=== PATIENT | female | born 1955 | race Caucasian/White ===

== ENCOUNTER → 2023-09-19 11:21 | Outpatient (REF) | payer MEDICARE, OTHER, SELFPAY | LOC: WDC 11:21 | PROVIDERS: ATTENDING PHYSICIAN Internal Medicine Hematology & Oncology; FAMILY PHYSICIAN Physician Assistant Medical | DX: N60.82 Other benign mammary dysplasias of left breast (principal); R92.8 Other abnormal and inconclusive findings on diagnostic imaging of breast; Z13.820 Encounter for screening for osteoporosis; M81.0 Age-related osteoporosis without current pathological fracture; Z12.31 Encounter for screening mammogram for malignant neoplasm of breast | CPT/HCPCS: 77063; 77067; 77080 ==

== ENCOUNTER 2024-03-09 01:20 | Emergency (ER) | payer MEDICARE, OTHER, SELFPAY ==
[2024-03-09 01:22] VITALS: BP 229/106
--- NOTE | 2024-03-09 02:33 | ED.GENMED ---
History of Present Illness
General
Chief Complaint: Back Pain
Time Seen by Provider: 03/09/24 02:32
History of Present Illness
History of Present Illness:
TIME OF INITIAL ENCOUNTER: 2:30 AM
HPI: The patient presents with right-sided low back pain that goes into the right mid thigh. She has had similar symptoms on the left side related to sciatica. She is not sure what she took for this in the past but does not want to take any
narcotic analgesia. She has no weakness in the legs. The pain has been so severe at times that she cannot sleep.
EXAM:
GENERAL: Well appearing but in mild distress
HEENT: Moist oral mucosa
NEUROLOGIC: Excellent strength all extremities, no obvious coordination deficits
PSYCHIATRIC: Appropriate mental status, normal insight and judgement
EXTREMITIES: Nontender, no edema, moves all extremities equally
BACK: There is no midline T or L-spine tenderness, there is some discomfort to palpation in the right SI region, positive straight leg raise on the right
SKIN: No rash, no lesions
NUMBER AND COMPLEXITY OF PROBLEMS ADDRESSED AT THE ENCOUNTER
� Chronic conditions affecting care: Sciatica, high blood pressure, GERD
� Acute Exacerbation and/or Progression of Chronic Illness: This is an acute problem
� Differential Diagnosis includes: Sciatica, degenerative joint disease, degenerative disc disease, spinal stenosis
AMOUNT AND/OR COMPLEXITY OF DATA TO BE REVIEWED AND ANALYZED
� I performed an independent evaluation of and my interpretation is:
EKG:
CT:
X-rays:
Laboratory Studies:
Other:
� Review of other/old records: Osteopenia seen in the femoral neck based on imaging from earlier this year on bone density scan
� Clinical information was obtained by an independent historian: None needed
� Prescriptions/Medications Considered but not given: Considered narcotic analgesia but patient declined
� Further testing considered but not performed: No back pain red flags therefore no imaging obtained
RISK OF COMPLICATIONS AND/OR MORBIDITY OR MORTALITY OF PATIENT MANAGEMENT
� Social determinants of health affecting care: Lives at home
� Discussion with other providers:
� Escalation of care including admission/observation vs risk of discharge considered: Had long discussion with patient regarding her blood pressure and absolute need for follow-up. She has no symptoms that would be related
directly to the blood pressure. Suspect component of blood pressure elevation related to the pain. She will be taking her blood pressure medication later this morning. She takes enalapril. She has normal neurologic examination regarding the
lower extremities. Suspect sciatica and will start steroids and gave a shot of IM Toradol as well.
ANY OTHER UPDATES:
3 AM: BP has improved spontaneously
Past History
Past History
ED Past Medical History: GERD
ED Past Surgical History: Appendectomy and Orthopedic
Social History
Tobacco: Non-smoker
Alcohol: None
Drug: None
Personal:
Living: with family
Employment: Employed
Family History
Family History: Other (Noncontributory)
Phy Exam
Physical Exam
Physical Exam:
See HPI
Course
Orders/Labs/Results
Orders:
Orders
03/09/24 02:39
Ketorolac [Toradol] 30 mg IM NOW STA
Prednisone [Deltasone] 50 mg PO NOW STA
Vital Signs
Initial and Last Documented VS:
Initial Vital Signs
Temp Pulse Resp BP Pulse Ox
98 F 74 26 229/106 98
03/09/24 01:22 03/09/24 01:22 03/09/24 01:22 03/09/24 01:22 03/09/24 01:22
Last Documented Vital Signs
Temp Pulse Resp BP Pulse Ox
98 F 74 26 229/106 98
03/09/24 01:22 03/09/24 01:22 03/09/24 01:22 03/09/24 01:22 03/09/24 01:22
*Critical Care Note
Total Time (30-74mins, 75-104mins- exclusive of procedures): Not Applicable
ED Attending Note
-
Portions of this chart may have been created with voice recognition software.� Occasional wrong word or��sound alike� substitutions may have occurred due to the inherent limitations of voice recognition software.
Discharge Plan
Departure
Patient Disposition: Home (Routine Discharge)
Date of Disposition: 03/09/24
Time of Disposition: 03:16
Patient with high blood pressure during this ER visit?: Yes
Discharge Problem:
Sciatica
Instructions: Sciatica (DC), BLOOD PRESSURE
Prescriptions:
New
prednisone 50 mg tablet
50 mg PO DAILY Qty: 4 0RF
No Action
melatonin 5 MG tablet
10 mg PO HS
Vitamin D3:
2 tab.chew PO DAILY
anastrozole 1 mg Tablet
1 mg PO DAILY
calcium carbonate-vitamin D3 [Calcium 600 + D(3)] 600 mg-10 mcg (400 unit) Tablet
1 tab PO DAILY
biotin
1 tab PO DAILY
calcium carbonate [Tums] 200 mg calcium (500 mg) Tablet,Chewable
200 mg PO DAILY PRN (Reason: gerd)
mupirocin 2 % ointment
1 applic topical BID Qty: 1 0RF
Patient Comments:
pt started 3 days prior to OR day, last performed at 11/29/22 AM of surgery
aspirin 325 mg tablet
325 mg PO DAILY Qty: 1 0RF
Rx Instructions:
Take with food
famotidine 20 mg tablet
20 mg PO HS Qty: 30 0RF
Rx Instructions:
post-op
dexamethasone 4 mg tablet
4 mg PO BID Qty: 6 0RF
Rx Instructions:
take with food
post-op use only
docusate sodium [Colace] 100 mg capsule
100 mg PO BID Qty: 1 0RF
gabapentin 300 mg capsule
300 mg PO TID Qty: 30 0RF
sennosides [Senokot] 8.6 mg tablet
17.2 mg PO BID Qty: 2 0RF
meloxicam 15 mg tablet
15 mg PO DAILY Qty: 14 0RF
Rx Instructions:
take with food
post-op
magnesium hydroxide [Milk of Magnesia] 400 mg/5 mL suspension
30 ml PO HS PRN (Reason: Constipation) Qty: 1 0RF
diazepam [Valium] 2 mg tablet
2 mg PO BID Qty: 10 0RF
oxycodone 5 mg tablet
5 - 10 mg PO Q6HPRN PRN (Reason: 1 tab moderate-2 tabs severe pain) Qty: 30 0RF
Rx Instructions:
Dx surgery
ongoing therapy
Post-op use
acetaminophen [Tylenol Extra Strength] 500 MG tablet
1,000 mg PO QID Qty: 0 0RF
amlodipine 2.5 mg tablet
2.5 mg PO BID Qty: 60 1RF
Rx Instructions:
hold Systolic blood pressure <125
Activity Restrictions/Additional Instructions:
Your blood pressure is markedly elevated. I am sending a prescription for prednisone to your pharmacy. Take the next dose Saturday morning as we are giving your first dose today, Saturday morning. We also gave a one-time dose of Toradol. You must
follow-up with your doctor and/or club steward regarding your very high blood pressure readings as well. Continue your blood pressure medication
Interventions
Interventions:
*Risk Screen - Suicide Last Done: 03/09/24 01:22
*General Assessment Last Done: 03/09/24 02:22
*Neglect/Abuse Screening Last Done: 03/09/24 01:22
*ED COVID-19 Vaccine History Last Done: 03/09/24 02:27
ED-Musculoskeletal Assessment Last Done: 03/09/24 02:22
Discharge Date and Time
Print Language: BRUNEIAN
[2024-03-09] MEDS: TORADOL 30 MG IM (02:48)
[2024-03-09] MEDS: DELTASONE 50 MG PO (02:48)
[2024-03-09 03:13] VITALS: BP 178/66
== END 2024-03-09 03:21 | disposition home or self-care (01) ==
LOC: EMR 01:20
PROVIDERS: EMERGENCY PHYSICIAN Emergency Medicine; FAMILY PHYSICIAN Physician Assistant Medical
DX: M54.40 Lumbago with sciatica, unspecified side (principal); I10 Essential (primary) hypertension; K21.9 Gastro-esophageal reflux disease without esophagitis
CPT/HCPCS: 99284; 96372

== ENCOUNTER → 2024-09-24 13:16 | Outpatient (REF) | payer MEDICARE, OTHER, SELFPAY | LOC: WDC 13:16 | PROVIDERS: ATTENDING PHYSICIAN Internal Medicine Hematology & Oncology; FAMILY PHYSICIAN Physician Assistant Medical | DX: Z12.31 Encounter for screening mammogram for malignant neoplasm of breast (principal) | CPT/HCPCS: 77063; 77067 ==